=== PATIENT | male | born 1995 | race Caucasian/White ===

== ENCOUNTER 2019-07-20 10:46 | Emergency (ER) | payer OTHER ==
[2019-07-20] MEDS ORDERED: Metoclopramide 10 MG/2 ML SDV IVPUSH ONE (10:58)
[2019-07-20] MEDS ORDERED: HYDROmorphone 0.5 MG/0.5 ML Syringe IVPUSH ONE ×2 (10:58→13:35)
[2019-07-20] MEDS ORDERED: Sodium Chloride 0.9% 1,000 ML IV SCH (11:00)
--- NOTE | 2019-07-20 11:02 | EDM.PDOC ---
ED HPI GENERAL MEDICAL PROBLEM - General Chief Complaint: Trauma Stated Complaint: HIP INJURY Time Seen by Provider: 07/20/19 10:57 Source of Information: Reports: Patient History Limitations: Reports: No Limitations - History of Present Illness INITIAL COMMENTS - FREE TEXT/NARRATIVE: 24-year-old male reports that he was [place] jacks and landed on top of him. He was on a creeper and he states the cross frame in front of the transmission came down across his pelvis and that pinned his pelvis to the creeper and he was unable to get out on his own volition. The truck had to be jacked up to free him. Apparently i.e. friend was in the garage with him and had the car jacked up in about a minute. He has pain and abrasions over his right anterior iliac spine and severe pain left hip. He states initially he was able to take a few steps on the left hip but no longer is able to do so. Pain is severe if he tries to fully extend the left hip. Eyes any injuries to his chest head neck. Does have some mild pain and is very low back. No pain in the genital area. Onset: Today Onset Date: 07/20/19 Onset Time: 10:30 Duration: Minutes:, Getting Worse (Left hip pain) Location: Reports: Pelvis (Vehicle apparently landed across his pelvis.), Lower Extremity, Left (Pain left hip and across his pelvis.) Quality: Reports: Ache Severity: Moderate (10 with any movement of his left hip) Improves with: Reports: Rest (And improved with left hip flexed and pillows underneath the knee.) Worsens with: Reports: Movement (Movement of his left leg.) Context: Reports: Trauma (Crush type injury across the pelvis.). Denies: Activity, Exercise, Lifting, Sick Contact Associated Symptoms: Reports: No Other Symptoms Treatments TOP STEEP TENDER: Reports: Other (see below) (None.) Left Hip Pain Score (Numeric/FACES): 10 - Related Data Allergies Allergy/AdvReac Type Severity Reaction Status Date / Time bee pollen Allergy Swelling Verified 07/20/19 10:57 Home Meds: Home Meds oxyCODONE HCl/Acetaminophen [Percocet 5-325 mg Tablet] 1 - 2 each PO Q4H PRN # 20 tablet 07/20/19 [Rx] Social & Family History - Living Situation & Occupation Living situation: Reports: Single Occupation: Employed Review of Systems - Review of Systems Review Of Systems: See Below Constitutional: Reports: No Symptoms Eyes: Reports: No Symptoms Ears: Reports: No Symptoms Nose: Reports: No Symptoms Mouth/Throat: Reports: No Symptoms Respiratory: Reports: No Symptoms Cardiovascular: Reports: No Symptoms GI/Abdominal: Reports: No Symptoms Genitourinary: Reports: No Symptoms Musculoskeletal: Reports: No Symptoms Skin: Reports: No Symptoms Neurological: Reports: No Symptoms Psychiatric: Reports: No Symptoms ED EXAM, GENERAL - Physical Exam Exam: See Below Exam Limited By: No Limitations General Appearance: Alert, WD/WN, Moderate Distress (Pain in his left hip.) Eye Exam: Bilateral Eye: Normal Inspection Neck: Normal Inspection, Supple, Non-Tender, Full Range of Motion. No: Carotid Bruit, Lymphadenopathy (L), Lymphadenopathy (R) Respiratory/Chest: Lungs Clear, Normal Breath Sounds, No Accessory Muscle Use, Chest Non-Tender, Respiratory Distress Cardiovascular: Normal Peripheral Pulses, Regular Rate, Rhythm, No Edema, No Gallop, No Murmur Peripheral Pulses: 3+: Posterior Tibial (L), Posterior Tibial (R), Dorsalis Pedis (L), Dorsalis Pedis (R) GI/Abdominal: Normal Bowel Sounds, Soft, Non-Tender, No Organomegaly, Pelvis Stable, Other (Has a fairly large abrasion fairly superficial over the right anterior it iliac spine . Mild pain at Plavix symphysis. No open book fracture) (Male) Exam: No Hernia, Circumcised, Other (No injuries to the genitals. No blood at the urethral meatus.) Rectal (Males) Exam: Normal Exam, Normal Rectal Tone Back Exam: Other (Mild tenderness on palpation of the L5 vertebra. Over the spinous process.) Extremities: Limited Range of Motion (He is unable to flex or internally externally rotate the left hip. On the right side when I internally flex his hip because of some pain on the left side. On the right side there is no obvious swelling or deformity of the right hip.), Other Neurological: Alert, Oriented, CN II-XII Intact, Normal Cognition, Other ( Unable to weight-bear in the left hip or leg.) Psychiatric: Anxious, Other (Good deal of pain.) Skin Exam: Warm, Dry, Normal Color, Other (Abrasions over the right anterior iliac spine of pelvis.) Course - Vital Signs Last Recorded V/S: Last Vital Signs Temp 37.3 C 07/20/19 10:54 Pulse 79 07/20/19 10:54 Resp 20 07/20/19 10:54 BP 119/70 07/20/19 10:54 Pulse Ox 100 07/20/19 10:54 - Orders/Labs/Meds Orders: Active Orders 24 hr Category Date Time Status PATIENT RETYPE [BBK] Routine Lab 07/20/19 11:42 Ordered Labs: Laboratory Tests 07/20/19 07/20/19 07/20/19 Range/Units 10:55 10:55 10:55 WBC 7.53 (4.23-9.07) K/mm3 RBC 4.74 (4.63-6.08) M/mm3 Hgb 14.5 (13.7-17.5) gm/L Hct 42.9 (40.1-51.0) % MCV 90.5 (79.0-92.2) fl MCH 30.6 (25.7-32.2) pg MCHC 33.8 (32.2-35.5) g/dl RDW Std Deviation 42.8 (35.1-43.9) fL Plt Count 220 (163-337) K/mm3 MPV 11.7 (9.4-12.3) fl Neut % (Auto) 42.7 (34.0-67.9) % Lymph % (Auto) 47.4 (21.8-53.1) % Nash % (Auto) 7.4 (5.3-12.2) % Eos % (Auto) 1.6 (0.8-7.0) Baso % (Auto) 0.4 (0.1-1.2) % Neut # (Auto) 3.21 (1.78-5.38) K/mm3 Lymph # (Auto) 3.57 (1.32-3.57) K/mm3 Nash # (Auto) 0.56 (0.30-0.82) K/mm3 Eos # (Auto) 0.12 (0.04-0.54) K/mm3 Baso # (Auto) 0.03 (0.01-0.08) K/mm3 PT 11.5 (9.7-12.0) SECONDS INR 1.06 APTT 23 (22-31) SECONDS Sodium 141 (136-145) mEq/L Potassium 3.4 L (3.5-5.1) mEq/L Chloride 104 (98-107) mEq/L Carbon Dioxide 22 (21-32) mEq/L Anion Gap 18.4 H (5-15) BUN 10 (7-18) mg/dL Creatinine 1.0 (0.7-1.3) mg/dL Est Cr Clr Drug Dosing 111.51 mL/min Estimated GFR (MDRD) > 60 (>60) mL/min BUN/Creatinine Ratio 10.0 L (14-18) Glucose 163 H (74-106) mg/dL Calcium 9.5 (8.5-10.1) mg/dL Total Bilirubin 0.3 (0.2-1.0) mg/dL AST 15 (15-37) U/L ALT 21 (16-63) U/L Alkaline Phosphatase 100 (46-116) U/L Creatine Kinase (39-308) U/L Total Protein 7.1 (6.4-8.2) g/dl Albumin 3.8 (3.4-5.0) g/dl Globulin 3.3 gm/dL Albumin/Globulin Ratio 1.2 (1-2) Urine Color (Yellow) Urine Appearance (Clear) Urine pH (5.0-8.0) Ur Specific Vesper (1.005-1.030) Urine Protein (Negative) Urine Glucose (UA) (Negative) Urine Ketones (Negative) Urine Occult Blood (Negative) Urine Nitrite (Negative) Urine Bilirubin (Negative) Urine Urobilinogen (0.2-1.0) Ur Leukocyte Esterase (Negative) Urine RBC (0-5) /hpf Urine WBC (0-5) /hpf Ur Squamous Epith Cells (0-5) /hpf Urine Bacteria (FEW) /hpf Urine Mucus (FEW) /hpf Blood Type Gel Antibody Screen 07/20/19 07/20/19 07/20/19 Range/Units 10:55 10:55 13:30 WBC (4.23-9.07) K/mm3 RBC (4.63-6.08) M/mm3 Hgb (13.7-17.5) gm/L Hct (40.1-51.0) % MCV (79.0-92.2) fl MCH (25.7-32.2) pg MCHC (32.2-35.5) g/dl RDW Std Deviation (35.1-43.9) fL Plt Count (163-337) K/mm3 MPV (9.4-12.3) fl Neut % (Auto) (34.0-67.9) % Lymph % (Auto) (21.8-53.1) % Nash % (Auto) (5.3-12.2) % Eos % (Auto) (0.8-7.0) Baso % (Auto) (0.1-1.2) % Neut # (Auto) (1.78-5.38) K/mm3 Lymph # (Auto) (1.32-3.57) K/mm3 Nash # (Auto) (0.30-0.82) K/mm3 Eos # (Auto) (0.04-0.54) K/mm3 Baso # (Auto) (0.01-0.08) K/mm3 PT (9.7-12.0) SECONDS INR APTT (22-31) SECONDS Sodium (136-145) mEq/L Potassium (3.5-5.1) mEq/L Chloride (98-107) mEq/L Carbon Dioxide (21-32) mEq/L Anion Gap (5-15) BUN (7-18) mg/dL Creatinine (0.7-1.3) mg/dL Est Cr Clr Drug Dosing mL/min Estimated GFR (MDRD) (>60) mL/min BUN/Creatinine Ratio (14-18) Glucose (74-106) mg/dL Calcium (8.5-10.1) mg/dL Total Bilirubin (0.2-1.0) mg/dL AST (15-37) U/L ALT (16-63) U/L Alkaline Phosphatase (46-116) U/L Creatine Kinase 133 (39-308) U/L Total Protein (6.4-8.2) g/dl Albumin (3.4-5.0) g/dl Globulin gm/dL Albumin/Globulin Ratio (1-2) Urine Color Yellow (Yellow) Urine Appearance Clear (Clear) Urine pH 8.5 H (5.0-8.0) Ur Specific Vesper 1.025 (1.005-1.030) Urine Protein Negative (Negative) Urine Glucose (UA) Trace H (Negative) Urine Ketones Negative (Negative) Urine Occult Blood Negative (Negative) Urine Nitrite Negative (Negative) Urine Bilirubin Negative (Negative) Urine Urobilinogen 0.2 (0.2-1.0) Ur Leukocyte Esterase Negative (Negative) Urine RBC 0-5 (0-5) /hpf Urine WBC 0-5 (0-5) /hpf Ur Squamous Epith Cells Not seen (0-5) /hpf Urine Bacteria Few (FEW) /hpf Urine Mucus Not seen (FEW) /hpf Blood Type O POSITIVE Gel Antibody Screen Negative Meds: Medications Discontinued Medications Generic Name Dose Route Start Last Admin Trade Name Freq PRN Reason Stop Dose Admin Hydromorphone HCl 0.5 mg 07/20/19 10:58 07/20/19 11:03 Dilaudid IVPUSH 07/20/19 10:59 0.5 mg ONETIME ONE Administration Hydromorphone HCl 1 mg 07/20/19 13:34 Dilaudid IVPUSH 07/20/19 13:35 ONETIME ONE Hydromorphone HCl 0.5 mg 07/20/19 13:35 07/20/19 13:44 Dilaudid IVPUSH 07/20/19 13:36 0.5 mg ONETIME ONE Administration Sodium Chloride 1,000 mls @ 500 mls/hr 07/20/19 11:00 07/20/19 11:03 Normal Saline IV 500 mls/hr ASDIRECTED JUSTUS Administration Ketorolac Tromethamine 30 mg 07/20/19 13:45 07/20/19 13:42 Toradol IVPUSH 30 mg ONETIME JUSTUS Administration Metoclopramide HCl 7.5 mg 07/20/19 10:58 07/20/19 11:05 Reglan IVPUSH 07/20/19 10:59 7.5 mg ONETIME ONE Administration - Radiology Interpretation Free Text/Narrative:: 24-year-old male presents to the ED after suffering a crush type injury across his pelvis. Patient was working under a truck at the [employer]. He was lying on a creeper under the vehicle and it fell off the jacks. The cross member by the transmission pinned his pelvis to the creeper and he was unable to get out from under the vehicle on his own volition. He was able to cry out for help and the vehicle was jacked back up to free him. Into the hospital on his own volition with his girlfriend. He is in quite a bit of pain and in the unable to internally or externally flex his left hip concerning for fracture. Plan IV normal saline at 500 mils per hour. Dilaudid 0.5 mg IV with Reglan 7.5 mg IV for pain and nausea relief. He will have x-rays of his pelvis and left femur. CT lumbar spine to be done. Elected to include type and screen and urinalysis when one becomes available. 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 Acute fractures or other bony abnormalities noted. There is an abnormality of the right-sided lamina portion of L5. Compression fractures identified SI joints and posterior iliac wings are intact. X-ray of the pelvis shows no obvious fractures. X-ray of the left femur reveals no obvious fractures. No fractures in the acetabulum noted. 07/20/19 12:33 patient was advised of the findings. CT lumbar spine does not reveal any fractures.Plain Films of the pelvis don't show any fractures and x- rays of the left femur don't show any obvious fractures. However reexamination he still can't internally or externally rotate the left hip at all without severe pain. There is a hematoma coming up on the left lateral hip area. Feels pain in his left groin rating towards the pubic symphysis. I'm therefore going to CT his pelvis to make sure there is no FRACTURE. Tiny states that his pain is tolerable. 07/20/19 13:28 CT of the pelvis has been completed and over read by the radiologist. He agrees with soft tissue swelling within the subcutaneous fat within the right lateral pelvis. No pelvic fractures or hip fractures are identified. Going to get the patient up and see if he can weight-bear partially on the left leg or get around with crutches. not enough soft tissue injuries to be worrisome for rhabdomyolysis. Patient did stand up and voided at the bedside. 07/20/19 13:37 Labs reveal a normal white count 7.53. Auto differential shows 43 % neutrophils 47% lymphocytes suggesting mild viral infection. Hemoglobin is 14.5 and hematocrit of 42.9. Platelet count 220,000. PT is 11.5 with an INR 1.06. PTT is 23. Sodium 141 with a potassium of 3.4. Chloride 1043 bicarbonate 22. Anion gap is mildly elevated at 18.4. He admits he has not ate or drank yet today. BUN is 10 with a creatinine of 1.0. Estimated GFR is greater than 60. Glucose is 163. Calcium is 9.5. Liver function is normal CPK total is 133. Total protein 7.1 with an albumin fraction of 3.8. Plan patient is having more pain. He will be given Dilaudid 0.5 mg IV and Toradol 30 mg IV for pain relief. I will then get him set up for crutches so that he can be nonweightbearing crutch walking for the next 3-5 days. Percocet tabs 5/325 mg one or 2 every 4-6 hours as needed for pain relief 20 tablets will be provided. Suggest follow-up up with personal physician in 5 days time to see when he might be able to return to work. Urinalysis has now back in shows no red cells or evidence of hematuria. Departure - Departure Time of Disposition: 13:58 Disposition: Home, Self-Care 01 Condition: Fair Clinical Impression: Contusion of lower back and pelvis, initial encounter Abrasion of pelvic region Qualifiers: Encounter type: initial encounter Qualified Code(s): S30.810A - Abrasion of lower back and pelvis, initial encounter Contusion of left hip and thigh Qualifiers: Encounter type: initial encounter Qualified Code(s): S70.02XA - Contusion of left hip, initial encounter - Discharge Information *PRESCRIPTION DRUG MONITORING PROGRAM REVIEWED*: Not Applicable *COPY OF PRESCRIPTION DRUG MONITORING REPORT IN PATIENT RODIR: Not Applicable Prescriptions: oxyCODONE HCl/Acetaminophen [Percocet 5-325 mg Tablet] 1 - 2 each PO Q4H PRN # 20 tablet PRN Reason: pain relief. Instructions: Contusion, Ovso-ah-Dgel, Abrasion, Xrfm-[id number] Referrals: PCP,None [Primary Care Provider] - Forms: ED Department Discharge Additional Instructions: Evaluation the emergency room today in regards to a crush type injury across her pelvis primarily injuring the left hip and buttock area. Is occurred when the cardia were working under came off the jacks and you opinion by the frame of the vehicle on a creeper. You were not pin for very long as you indicate your body was able to jacks the vehicle up off be within a minute or so. You have suffered abrasions to the right anterior hip which will need daily cleansing. Showering is okay. Then apply topical antibiotic such as bacitracin or Polysporin to the wounds daily and cover with a bandage to keep clean until they are healed which will be about a week. CT of the pelvis CT of the lumbar spine and x-ray of the left femur and hip do not reveal any broken bones. Injuries are therefore soft tissue in origin with contusions to the underlying muscles and likely sprain ligaments around the left hip joint minutes time to heal. Ice pack to the left hip and buttock area one half hour out of every 4 hours today and tomorrow. Suggest nonweightbearing crutch walking until able to put weight on the left leg and walk normally which will probably be 5 days or so. Suggest Motrin 600 mg every 6 hours to relieve pain and inflammation. Percocet tabs 5/3/25 milligrams one or 2 every 4-6 hours for pain not relieved by Motrin alone for the next 3 or 4 days. Just follow-up with her personal care physician on Saturday this week to see when you might be able to return to normal work duties or early next Saturday. - My Orders Last 24 Hours: My Active Orders 07/20/19 11:42 PATIENT RETYPE [BBK] Routine - Assessment/Plan Last 24 Hours: My Active Orders 07/20/19 11:42 PATIENT RETYPE [BBK] Routine
--- NOTE | 2019-07-20 12:51 | CR ---
Pelvis: AP view of the pelvis was obtained. Comparison: No prior pelvis exam. Minimal joint space narrowing is seen superiorly within the left hip as compared to the right hip. Sacroiliac joints appear within normal limits. Transitional segment is seen on the left side with pseudoarticulation of an enlarged left L5 transverse process to the sacrum. No acute fracture or other bony abnormality is seen. Impression: 1. Findings which are felt to be incidental. Nothing acute is seen. Diagnostic code #2
--- NOTE | 2019-07-20 12:51 | CT ---
CT lumbar spine Technique: Multiple axial sections were obtained from above the T10-T11 disc inferiorly through the L5-S1 disc. Reconstructed sagittal and coronal images were reviewed. Findings: Mild disc space narrowing and Schmorl's node deformities are noted at T10-T11, T11-T12 and T12-L1. Rudimentary disc is noted at L5-S1 most likely transitional. Other disc spaces are maintained. Posterior discs are preserved with no disc herniation being seen. Very minimal diffuse posterior disc bulge is noted at L4-L5. No fracture or abnormal subluxation is seen. Impression: 1. Findings which are felt to be incidental. 2. Nothing acute is identified on CT study of the lumbar spine. Diagnostic code #2
--- NOTE | 2019-07-20 12:52 | CR ---
Left femur: AP and lateral views of the left femur were obtained. Comparison: No prior femur study. No fracture or other abnormality is appreciated. Impression: 1. No abnormality is identified on left femur study. Diagnostic code #1
--- NOTE | 2019-07-20 13:15 | CT ---
CT pelvis Technique: Multiple axial sections through the pelvis were obtained. Reconstructed coronal and sagittal images were obtained. Comparison: Previous plain film pelvis exam performed earlier on the same day (11:19 AM). Findings: No pelvic fracture is seen. Right and left hips show no fracture. No intrapelvic abnormality is appreciated. Slight subcutaneous edema is noted laterally within the right side of the pelvis. Transitional segment is again noted at the lumbosacral junction. Impression: 1. Soft tissue swelling within the subcutaneous fat within the right lateral pelvis. 2. No pelvic fracture is seen. Diagnostic code #2
[2019-07-20] MEDS ORDERED: HYDROmorphone 1 MG/ML Syringe IVPUSH ONE (13:34)
[2019-07-20] MEDS ORDERED: Ketorolac 30 MG/ML SDV IVPUSH SCH (13:45)
== END 2019-07-20 14:02 | disposition home or self-care (01) ==
LOC: JD.ED 10:46
DX: S30.0XXA Contusion of lower back and pelvis, initial encounter (principal); S70.02XA Contusion of left hip, initial encounter; S70.12XA Contusion of left thigh, initial encounter; Z91.030 Bee allergy status; V09.9XXA Pedestrian injured in unspecified transport accident, initial encounter
CPT/HCPCS: 36415; 72131; 72170; 72192; 73552; 80053; 81001; 82550; 85025; 85610; 85730; 86850; 86900; 86901; 96361; 96374; 96375; 96376; 99284; J1170; J1885; J2765; J7040